=== PATIENT | male | born 1960 | race Caucasian/White ===

== ENCOUNTER 2019-05-19 09:45 | Emergency (ER) | payer MEDICARE, SELFPAY ==
[2019-05-19 09:56] VITALS: BP 180/99; PULSE 70; RESP 16; TEMP 36.9; O2SAT 100
--- NOTE | 2019-05-19 10:47 | ED.GENADULT ---
HPI - General Adult General Chief complaint: Recheck/Abnormal Lab/Rx Stated complaint: med refill Time Seen by Provider: 05/19/19 10:48 Source: patient and RN notes reviewed Mode of arrival: ambulatory Limitations: no limitations History of Present Illness HPI narrative: 59-year-old male presents with complaints of upper respiratory infection, facial congestion, facial pain, cough, and intermittent headaches (not the worst of his life) for the past 10 days. Vitamin C and 200mg of Zinc daily without relief. No facial swelling. Dry cough/intermittent productive cough (yellow phlegm). Nasal congestion and rhinorrhea. No chest pain or shortness of breath. Exacerbating factors consist of smoke exposure. Denies fever or chills. Denies nausea, vomiting, and abdominal pain. Tolerating po intake well. Remains active. Complains of need for Levothyroxine to be filled, out of medication for 1 week. He has several old prescriptions in his hand. Clarence says he has been out of his Levothroxine and has been finding it difficult to find a PMD since his retired without notice. He is currently awaiting evaluation per new provider at this time. Denies fatigue, increased appetite, weight loss, heat sensitivity, excessive sweating, SILVA, and hyperactivity. Some parts of this dictation were generated by voice recognition software and may contain typographical and/or grammatical inaccuracies. Related Data Home Medications Medication Instructions Recorded Confirmed levothyroxine 100 mcg PO DAILY 05/19/19 05/19/19 Allergies Allergy/AdvReac Type Severity Reaction Status Date / Time No Known Allergies Allergy Verified 05/19/19 09:55 Review of Systems Review of Systems: Narrative: CONSTITUTIONAL: Denies fever, chills, sweats. EYES: Denies visual changes, redness, discharge. ENT: Complains of rhinorrhea, congestion, facial pain and congestion. Denies sore throat. otalgia. CARDIOVASCULAR: Denies chest pain, palpitations, edema. RESPIRATORY: Denies dyspnea, wheezing. Complains of dry cough, intermittent productive cough. GASTROINTESTINAL: Denies abdominal pain, nausea, vomiting, diarrhea. GENITOURINARY: Denies dysuria, hematuria, abnormal discharge. SKIN: Denies rash or itching. MUSCULOSKELETAL: Denies acute back pain, joint pain, or myalgia. NEUROLOGIC: Denies numbness or focal weakness. Complains of intermittent SILVA. PSYCHIATRIC: Denies anxiety or depression. All systems reviewed & are unremarkable except as noted in HPI and below. [facility] Past Medical History Medical History (Updated 05/20/19 @ 00:00 by Zora Reilly) Hypothyroidism Surgical History Surgical History (Updated 05/19/19 @ 10:56 by ARTURO Maldonado) History of tonsillectomy Hx of sinus surgery S/P partial thyroidectomy Family History Family History (Updated 05/19/19 @ 10:58 by ARTURO Maldonado) Mother Breast cancer Diabetes mellitus Thyroid cancer Grandparent Diabetes mellitus Father Lung cancer Sibling Thyroid cancer Social History Social History (Updated 05/19/19 @ 10:58 by ARTURO Maldonado) Smoking status: Never smoker Second hand tobacco smoke exposure: Yes Alcohol intake: never Substance use: never Living arrangements: with family Occupation/Education: occupation Gender identity (if verbalized by the patient): Male Comments At time of signature, agree with nurse past medical, surgical, social, and family history. There is no relevant family history pertinent to the presenting complaint. Exam Narrative: Exam Narrative: GENERAL: This is a well-nourished, well-developed patient, in no apparent distress. Talks in full sentences and ambulates with steady gait without dyspnea. HEAD: normocephalic, atraumatic. EYES: PERRL. Sclera clear/white. Vision is grossly intact. EARS: External ears normal, auditory canals clear and without drainage, TMs normal without perforation. He
[2019-05-19 11:12] VITALS: BP 160/92
== END 2019-05-19 11:12 | disposition home or self-care (01) ==
PROVIDERS: Emergency Provider Nurse Practitioner Family
DX: J32.9 Chronic sinusitis, unspecified (principal); Z76.0 Encounter for issue of repeat prescription; E03.9 Hypothyroidism, unspecified
CPT/HCPCS: 99203; G0463